=== PATIENT | male | born 1960 | race Caucasian/White ===

== ENCOUNTER 2023-02-22 13:13 | Emergency (ER) | payer OTHER ==
[2023-02-22] MEDS ORDERED: KETOROLAC TROMETHAMINE 60 MG/2 ML VIAL IM ONE (14:45)
[2023-02-22] MEDS ORDERED: DIAZEPAM 10 MG/2 ML DISP.SYRIN IM ONE (14:45)
--- NOTE | 2023-02-22 14:45 | NUR ---
ER at bedside examining patient.
[2023-02-22 15:00] VITALS: BP_SYST 148
[2023-02-22] MEDS ORDERED: DICL75TA5 PO (15:01)
[2023-02-22] MEDS ORDERED: LORazepam 2 MG/ML VIAL IM ONE (15:15)
--- NOTE | 2023-02-22 15:29 | NUR ---
Patient given written and verbal discharge instructions and verbalizes understanding. ER MD discussed with patient the results and treatment provided. Patient in stable condition. ID arm band removed. Rx of VOLTAREN given. Patient educated on pain management and to follow up with PMD. Opportunity for questions provided and answered. Medication side effect fact sheet provided.
== END 2023-02-22 15:00 | disposition home or self-care (01) ==
LOC: SED 13:13
DX: M54.50 Low back pain, unspecified (principal); G89.29 Other chronic pain; Z88.8 Allergy status to other drugs, medicaments and biological substances; Z79.899 Other long term (current) drug therapy
CPT/HCPCS: 99284; 96372; J1885; J2060